=== PATIENT | male | born 1990 | race Hispanic/Latino ===

== ENCOUNTER 2019-03-26 10:45 | Emergency (ER) | payer OTHER ==
[2019-03-26 10:54] VITALS: BP 150/59
--- NOTE | 2019-03-26 11:34 | Emergency Department Report ---
ED Shortness of Breath HPI - General Chief Complaint: Chest Pain Stated Complaint: CHEST PAIN/DIFF BREATHING Time Seen by Provider: 03/26/19 11:16 Source: patient Mode of arrival: Ambulatory Limitations: No Limitations - History of Present Illness Initial Comments: 28-year-old male presents to ED with complaint of chest pain or shortness of breath. Patient states symptoms began on yesterday after smoking a new type of marijuana for the first time. Patient states he experienced tightness in his chest and shortness of breath. Patient states the tightness in his chest is mostly resolved, however states he feels short of breath at rest, with talking, with walking. States he feels the need to take a deep breath more so than usual. Patient denies any leg pain or swelling, nausea or vomiting, diaphoresis, fever or cough. MD Complaint: shortness of breath, chest pain -: Last night Severity: mild Quality: other (tightness) Consistency: other (improving) Improves With: nothing Worsens With: exertion, other (speaking) Context: other (smoking marijuana) Associated Symptoms: chest pain Treatments Prior to Arrival: none - Related Data Previous Rx's Medication Instructions Recorded Last Taken Type Albuterol Sulfate [Proventil Hfa] 2 puff IH Q4HR PRN #1 [email or web address] 03/26/19 Unknown Rx Allergies Allergy/AdvReac Type Severity Reaction Status Date / Time Penicillins Allergy Unknown Verified 03/26/19 10:51 ED Review of Systems ROS: Stated complaint: CHEST PAIN/DIFF BREATHING Other details as noted in HPI Comment: All other systems reviewed and negative Constitutional: denies: chills, fever Respiratory: shortness of breath. denies: cough Cardiovascular: chest pain Gastrointestinal: denies: nausea, vomiting Musculoskeletal: other (denies leg pain or swelling) ED Past Medical Hx - Past Medical History Previous Medical History?: No - Surgical History Additional Surgical History: appendix removal - Social History Smoking Status: Never Smoker Substance Use Type: Marijuana - Medications Home Medications: Home Medications Medication Instructions Recorded Confirmed Last Taken Type Albuterol Sulfate [Proventil Hfa] 2 puff IH Q4HR PRN #1 [email or web address] 03/26/19 Unknown Rx ED Physical Exam - General Limitations: No Limitations General appearance: alert, in no apparent distress - Head Head exam: Present: atraumatic, normocephalic - Eye Eye exam: Present: normal appearance, EOMI - ENT ENT exam: Present: mucous membranes moist - Neck Neck exam: Present: normal inspection - Respiratory Respiratory exam: Present: normal lung sounds bilaterally. Absent: respiratory distress, wheezes, rales, rhonchi, stridor - Cardiovascular Cardiovascular Exam: Present: regular rate, normal rhythm - GI/Abdominal GI/Abdominal exam: Present: soft. Absent: distended, tenderness - Extremities Exam Extremities exam: Present: normal inspection. Absent: pedal edema, calf tenderness - Neurological Exam Neurological exam: Present: alert, oriented X3 - Psychiatric Psychiatric exam: Present: normal affect, normal mood - Skin Skin exam: Present: warm, dry, intact, normal color ED Course Vital Signs 03/26/19 10:51 Temperature 97.6 F Pulse Rate 83 Respiratory 18 Rate Blood Pressure 150/59 O2 Sat by Pulse 99 Oximetry ED Medical Decision Making - EKG Data -: EKG Interpreted by Oh EKG shows normal: sinus rhythm, axis, intervals, QRS complexes, ST-T waves Rate: normal - EKG Data Interpretation: no acute changes - Radiology Data Radiology results: report reviewed, image reviewed - Medical Decision Making 28-year-old male likely with irritation of airway secondary to smoking marijuana last night. Patient reports he smoked a different type of marijuana than what he is normally used to smoking. Patient reports chest tightness which has resolved, sensation of shortness of breath at rest, however, patient appears comfortable, he is in no respiratory distress, O2 sats are normal, patient is not tachypnea. EKG and chest x-ray are both unremarkable. We'll discharge at this time with prescription for inhaler. Outpatient follow-up advised. Return precautions given. - Differential Diagnosis pneumothorax, pneumonia, pneumonitis, anxiety, ACS Critical care attestation.: If time is entered above; I have spent that time in minutes in the direct care of this critically ill patient, excluding procedure time. ED Disposition Clinical Impression: Acute chest pain, Dyspnea Disposition: - TO HOME OR SELFCARE Is pt being admited?: No Condition: Stable Instructions: Chest Pain (ED), Dyspnea (ED) Prescriptions: Albuterol Sulfate [Proventil Hfa] 2 puff IH Q4HR PRN #1 [email or web address] PRN Reason: Wheezing Referrals: PRIMARY CARE, [Primary Care Provider] - 3-5 Days [facility] [Provider Group] - 3-5 Days Time of Disposition: 11:51
--- NOTE | 2019-03-26 11:46 | XRay Report ---
CHEST 2 VIEWS INDICATION / CLINICAL INFORMATION: sob, chest tightness since last night. COMPARISON: None available. FINDINGS: SUPPORT DEVICES: None. HEART / MEDIASTINUM: No significant abnormality. LUNGS / PLEURA: No significant pulmonary or pleural abnormality. No pneumothorax. ADDITIONAL FINDINGS: No significant additional findings. IMPRESSION: No significant abnormality Signer Name: Foster Alicea MD FACR Signed: 03/26/2019 11:42 AM Workstation Name: [id number]
== END 2019-03-26 12:36 | disposition home or self-care (01) ==
LOC: ED 10:45
DX: R07.89 Other chest pain (principal); R06.00 Dyspnea, unspecified; F12.10 Cannabis abuse, uncomplicated; Z79.899 Other long term (current) drug therapy; Z88.0 Allergy status to penicillin
CPT/HCPCS: 71046; 93005; 93010